=== PATIENT | female | born 1940 | race Caucasian/White ===

== ENCOUNTER 2016-09-04 16:45 | Outpatient (CLI) | payer MEDICARE ==
[2016-09-04 17:05] LABS: BASOPHILS % 0.9 (0.0-1.5); MEAN CORPUSCULAR HEMOGLOBIN 29.8 pg (28.0-34.0); MEAN CORPUSCULAR VOLUME 90.5 fl (80.0-100.0); MONOCYTES % 5.5 % (0.0-11.0); NEUTROPHILS # 5.8 # k/uL (1.4-7.7)
[2016-09-04 17:49] LABS: eGFR (African) > 60; eGFR (Non-African) > 60
== END 2016-09-04 16:46 ==
LOC: LAB 16:45
PROVIDERS: ATTEND Family Medicine
DX: M54.5 Low back pain (principal); Z51.81 Encounter for therapeutic drug level monitoring; R41.3 Other amnesia; E11.9 Type 2 diabetes mellitus without complications
CPT/HCPCS: 36415; 80053; 82607; 82746; 83036; 84443; 85025

== ENCOUNTER 2018-05-12 10:49 | Outpatient (CLI) | payer MEDICARE ==
[2018-05-12 11:57] LABS: eGFR (Non-African) 42
== END 2018-05-12 10:54 | disposition home or self-care (01) ==
LOC: LAB 10:49
PROVIDERS: ATTEND Family Medicine
DX: E55.9 Vitamin D deficiency, unspecified (principal); E03.9 Hypothyroidism, unspecified; E78.2 Mixed hyperlipidemia; E53.8 Deficiency of other specified B group vitamins
CPT/HCPCS: 36415; 80053; 80061; 82306; 82607; 84443

== ENCOUNTER 2018-07-23 11:49 | Outpatient (CLI) | payer MEDICARE | END 2018-07-23 11:52 | LOC: LAB 11:49 → SUPCPDRO 11:49 → LAB 11:52 | PROVIDERS: ATTEND Family Medicine | DX: E03.9 Hypothyroidism, unspecified (principal) | CPT/HCPCS: 36415; 84443 ==